=== PATIENT | female | born 1930 | race Caucasian/White ===

== ENCOUNTER 2018-10-04 22:00 | Emergency (ER) | payer MEDICARE, OTHER ==
[2018-10-04] MEDS ORDERED: 50% Dextrose in Water 50 ML Syringe ONE (22:06)
[2018-10-04] MEDS ORDERED: 50% Dextrose in Water 50 ML Syringe IVPUSH ONE (22:20)
--- NOTE | 2018-10-04 22:30 | EDM.PDOC ---
ED HPI GENERAL MEDICAL PROBLEM - General Chief Complaint: Diabetic Complaint Stated Complaint: [facility] Time Seen by Provider: 10/04/18 22:11 Source of Information: Reports: Patient, RN Notes Reviewed History Limitations: Reports: No Limitations - History of Present Illness INITIAL COMMENTS - FREE TEXT/NARRATIVE: The patient is brought to the ED by EMS, after she was found to be lethargic at home. Her family checked her blood glucose, finding it to be 28. They gave her Dr. Snyder, and called EMS. When EMS arrived, they found her blood glucose to be 52. They gave her a glucose tablet, after which her blood glucose was 56. A recheck was 52. They gave 2 more glucose tablets, after which her blood glucose was 54. Here in the ED, her initial blood glucose was 44. She was given 1 amp of D50. She is now alert, and states that she feels fine. She states that she takes NovoLog 70/30, 16 units QAM and 10 units at supper, which is typically between 5 and 6 PM. She states that she has been doing this for 15 years, and has never had a hypoglycemic reaction. She checks her blood glucose perhaps twice a week, most recently in the middle of last week. Her usual blood glucose range is in the 80s and 135. The patient states that she took her usual morning and evening NovoLog. She states that she had a normal breakfast and lunch, although she admits that she had less tender than usual. She states that it is impossible that she accidentally took excess insulin. The patient denies any recent fever, chills, chest pain, palpitations, cough, dyspnea, nausea, vomiting, constipation, diarrhea, abdominal pain, recent weight gain or weight loss, bloody bowel movements, black bowel movements, joint aches, headaches, rashes, or urinary symptoms. The patient's PCP is Dr. Blue Ann. 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: Other (See Below) (Ovarian cysts) Musculoskeletal History: Reports: Osteoarthritis Endocrine/Metabolic History: Reports: Diabetes, Type II, Hypothyroidism - Past Surgical History HEENT Surgical History: Reports: Oral Surgery Female Surgical History: Reports: Oophorectomy (right) Musculoskeletal Surgical History: Reports: Hip Replacement (bilateral) Social & Family History - Tobacco Use Smoking Status *Q: Never Smoker - Caffeine Use Caffeine Use: Reports: None - Alcohol Use Alcohol Use History: No - Recreational Drug Use Recreational Drug Use: No - Living Situation & Occupation Living situation: Reports: , Alone Occupation: Retired ED ROS GENERAL - Review of Systems Review Of Systems: ROS reveals no pertinent complaints other than HPI. ED EXAM GENERAL NO PERIP PULSE - Physical Exam Exam: See Below Exam Limited By: No Limitations General Appearance: Alert, WD/WN, No Apparent Distress Eye Exam: Bilateral Eye: EOMI, Normal Inspection Ears: Normal External Exam, Hearing Grossly Normal Nose: Normal Inspection Throat/Mouth: Normal Inspection, Normal Lips, Normal Voice, No Airway Compromise Head: Atraumatic, Normocephalic Neck: Normal Inspection, Full Range of Motion Respiratory/Chest: No Respiratory Distress, Lungs Clear, Normal Breath Sounds, No Accessory Muscle Use Cardiovascular: Normal Peripheral Pulses, Regular Rate, Rhythm, No Gallop, No JVD, No Murmur, No Rub GI/Abdominal: Normal Bowel Sounds, Soft, Non-Tender, No Organomegaly, No Distention, No Abnormal Bruit, No Mass, Other (Obese) (Female) Exam: Deferred Rectal (Female) Exam: Deferred Back Exam: Normal Inspection, Full Range of Motion, NT Extremities: Normal Inspection, Normal Range of Motion, No Pedal Edema, Normal Capillary Refill Neurological: Alert, Oriented, Normal Cognition, No Motor/Sensory Deficits Psychiatric: Normal Affect Skin Exam: Warm, Dry, Intact, Normal Color, No Rash Course - Vital Signs Last Recorded V/S: Last Vital Signs Temp 35.6 C 10/04/18 22:10 Pulse 74 10/04/18 22:10 Resp 18 10/04/18 22:10 BP 179/72 H 10/04/18 22:10 Pulse Ox 99 10/04/18 22:10 Orthostatic Blood Pressure [ 153/67 Standing] Orthostatic Blood Pressure [ 148/54 Supine] - Orders/Labs/Meds Labs: Laboratory Tests 10/04/18 10/04/18 10/04/18 Range/Units 22:04 22:17 22:42 WBC 7.51 (3.98-10.04) K/mm3 RBC 3.72 L (3.98-5.22) M/mm3 Hgb 11.8 (11.2-15.7) gm/L Hct 36.4 (34.1-44.9) % MCV 97.8 H (79.4-94.8) fl MCH 31.7 (25.6-32.2) pg MCHC 32.4 (32.2-35.5) g/dl RDW Std Deviation 46.1 (36.4-46.3) fL Plt Count 153 L (182-369) K/mm3 MPV 11.7 (9.4-12.3) fl Neutrophils % (Manual) 72 H (40-60) % Band Neutrophils % 0 (0-10) % Lymphocytes % (Manual) 15 L (20-40) % Atypical Lymphs % 0 % Monocytes % (Manual) 10 (2-10) % Eosinophils % (Manual) 3 (0.7-5.8) % Basophils % (Manual) 0 L (0.1-1.2) Platelet Estimate Adequate RBC Morph Comment Normal Sodium (136-145) mEq/L Potassium (3.5-5.1) mEq/L Chloride (98-107) mEq/L Carbon Dioxide (21-32) mEq/L Anion Gap (5-15) BUN (7-18) mg/dL Creatinine (0.55-1.02) mg/dL Est Cr Clr Drug Dosing Estimated GFR (MDRD) (>60) mL/min BUN/Creatinine Ratio (14-18) Glucose (83-115) mg/dL POC Glucose 44 L 183 H (83-110) mg/dL Calcium (8.5-10.1) mg/dL Magnesium (1.8-2.4) mg/dl Total Bilirubin (0.2-1.0) mg/dL AST (15-37) U/L ALT (14-59) U/L Alkaline Phosphatase (46-116) U/L Total Protein (6.4-8.2) g/dl Albumin (3.4-5.0) g/dl Globulin gm/dL Albumin/Globulin Ratio (1-2) 10/04/18 10/04/18 10/04/18 Range/Units 22:42 22:54 23:26 WBC (3.98-10.04) K/mm3 RBC (3.98-5.22) M/mm3 Hgb (11.2-15.7) gm/L Hct (34.1-44.9) % MCV (79.4-94.8) fl MCH (25.6-32.2) pg MCHC (32.2-35.5) g/dl RDW Std Deviation (36.4-46.3) fL Plt Count (182-369) K/mm3 MPV (9.4-12.3) fl Neutrophils % (Manual) (40-60) % Band Neutrophils % (0-10) % Lymphocytes % (Manual) (20-40) % Atypical Lymphs % % Monocytes % (Manual) (2-10) % Eosinophils % (Manual) (0.7-5.8) % Basophils % (Manual) (0.1-1.2) Platelet Estimate RBC Morph Comment Sodium 137 (136-145) mEq/L Potassium 4.0 (3.5-5.1) mEq/L Chloride 102 (98-107) mEq/L Carbon Dioxide 27 (21-32) mEq/L Anion Gap 12.0 (5-15) BUN 18 (7-18) mg/dL Creatinine 0.8 (0.55-1.02) mg/dL Est Cr Clr Drug Dosing TNP Estimated GFR (MDRD) > 60 (>60) mL/min BUN/Creatinine Ratio 22.5 H (14-18) Glucose 163 H (83-115) mg/dL POC Glucose 137 H 118 H (83-110) mg/dL Calcium 9.5 (8.5-10.1) mg/dL Magnesium 1.9 (1.8-2.4) mg/dl Total Bilirubin 0.3 (0.2-1.0) mg/dL AST 20 (15-37) U/L ALT 18 (14-59) U/L Alkaline Phosphatase 73 (46-116) U/L Total Protein 6.7 (6.4-8.2) g/dl Albumin 3.4 (3.4-5.0) g/dl Globulin 3.3 gm/dL Albumin/Globulin Ratio 1.0 (1-2) 10/05/18 10/05/18 Range/Units 00:09 00:42 WBC (3.98-10.04) K/mm3 RBC (3.98-5.22) M/mm3 Hgb (11.2-15.7) gm/L Hct (34.1-44.9) % MCV (79.4-94.8) fl MCH (25.6-32.2) pg MCHC (32.2-35.5) g/dl RDW Std Deviation (36.4-46.3) fL Plt Count (182-369) K/mm3 MPV (9.4-12.3) fl Neutrophils % (Manual) (40-60) % Band Neutrophils % (0-10) % Lymphocytes % (Manual) (20-40) % Atypical Lymphs % % Monocytes % (Manual) (2-10) % Eosinophils % (Manual) (0.7-5.8) % Basophils % (Manual) (0.1-1.2) Platelet Estimate RBC Morph Comment Sodium (136-145) mEq/L Potassium (3.5-5.1) mEq/L Chloride (98-107) mEq/L Carbon Dioxide (21-32) mEq/L Anion Gap (5-15) BUN (7-18) mg/dL Creatinine (0.55-1.02) mg/dL Est Cr Clr Drug Dosing Estimated GFR (MDRD) (>60) mL/min BUN/Creatinine Ratio (14-18) Glucose (83-115) mg/dL POC Glucose 121 H 148 H (83-110) mg/dL Calcium (8.5-10.1) mg/dL Magnesium (1.8-2.4) mg/dl Total Bilirubin (0.2-1.0) mg/dL AST (15-37) U/L ALT (14-59) U/L Alkaline Phosphatase (46-116) U/L Total Protein (6.4-8.2) g/dl Albumin (3.4-5.0) g/dl Globulin gm/dL Albumin/Globulin Ratio (1-2) Meds: Medications Discontinued Medications Generic Name Dose Route Start Last Admin Trade Name Freq PRN Reason Stop Dose Admin Dextrose/Water Confirm 10/04/18 22:06 10/04/18 22:20 Dextrose 50% In Water Administered 10/04/18 22:07 Not Given Dose 50 ml .ROUTE .STK-MED ONE Dextrose/Water 50 ml 10/04/18 22:20 10/04/18 22:08 Dextrose 50% In Water IVPUSH 10/04/18 22:21 50 ml ASDIRECTED ONE Administration - Re-Assessments/Exams Free Text/Narrative Re-Assessment/Exam: 10/04/18 22:29 The patient's hypoglycemia is likely due to her taking her usual amount of insulin, but eating an inadequate amount of dinner. The other possibility is that she has developed renal insufficiency. I have therefore ordered blood work and orthostatics. We will continue to Accu-Chek every 30 minutes (her most recent Accu-Chek was 183, following one amp of D50). 10/04/18 23:29 The patient's CBC is remarkable for platelets slightly depressed at 153,000, with the remainder of the CBC being unremarkable. Her CMP is unremarkable. Her magnesium level is within normal limits. Orthostatics are still pending. An earlier Accu-Chek was 137. Her most recent Accu-Chek is 118. We will give her something to eat. 10/05/18 00:28 The patient is not orthostatic. The patient's most recent blood glucose was 121 about 10-15 minutes ago. If her next Accu-Chek is stable, the patient may safely be discharged home. 10/05/18 01:07 The patient's most recent blood glucose is 148. This was relayed to the patient into of her daughters, who are now at the bedside. I will discharge her home. Departure - Departure Time of Disposition: 01:10 Disposition: Home, Self-Care 01 Condition: Good Clinical Impression: Hypoglycemic reaction to insulin - Discharge Information *PRESCRIPTION DRUG MONITORING PROGRAM REVIEWED*: Not Applicable *COPY OF PRESCRIPTION DRUG MONITORING REPORT IN PATIENT JOSY: Not Applicable Instructions: Hypoglycemia Referrals: Blue Ann MD [Primary Care Provider] - Forms: ED Department Discharge Additional Instructions: You were seen in the emergency room after your blood glucose was found to be very low - 28 at home, and 52 by the paramedics. Workup in the ER included blood work and positional blood pressure checks, all of which returned unremarkable. Your kidney function is normal, and you are not dehydrated. Your blood glucoses normalized after you were given IV dextrose and food. Based on your history, physical exam, and ER tests, the cause of your low blood sugar is most likely due to not eating enough after you took your normal amount of insulin. Going forward, it is important that you eat adequately if you take insulin. If you are not feeling hungry, take less, or even no insulin. It is preferable to have your blood sugar be high than low. Follow-up with your PCP, Dr. Blue Ann, later this week. If any other problems, please do not hesitate to return to the ER.
== END 2018-10-05 01:24 | disposition home or self-care (01) ==
LOC: JD.ED 22:00
DX: E11.649 Type 2 diabetes mellitus with hypoglycemia without coma (principal); T38.3X5A Adverse effect of insulin and oral hypoglycemic [antidiabetic] drugs, initial encounter; E66.9 Obesity, unspecified; Z98.890 Other specified postprocedural states; Z96.643 Presence of artificial hip joint, bilateral
CPT/HCPCS: 36415; 80053; 82962; 83735; 85007; 85027; 96374; 99285; J7060

== ENCOUNTER 2020-08-20 02:43 | Emergency (ER) | payer MEDICARE, OTHER ==
--- NOTE | 2020-08-20 03:46 | EDM.PDOC ---
ED HPI GENERAL MEDICAL PROBLEM - General Chief Complaint: Abdominal Pain Stated Complaint: ABDOMINAL PAIN Time Seen by Provider: 08/20/20 03:36 - History of Present Illness INITIAL COMMENTS - FREE TEXT/NARRATIVE: 89-year-old female presents the emergency room with abdominal pain. This pain started around 930 or 10:00 this evening. It started out as being periumbilical and his radiated up into the mid epigastric area. The patient still has her gallbladder and appendix and no history of significant abdominal surgeries. She is not nauseated at this time but has felt nauseated earlier this evening she has had no vomiting. No diarrhea no constipation. She is not aware of any fevers or chills. She has no pain radiating up into her chest. She does not wake up with any reflux. She has not had any black or tarry stools . Abdominal Pain Score (Numeric/FACES): 8 - Related Data Allergies Allergy/AdvReac Type Severity Reaction Status Date / Time No Known Allergies Allergy Verified 08/20/20 03:22 Home Meds: Home Meds Apixaban [Eliquis] 5 mg PO DAILY 08/20/20 [History] Calcium Carbonate [Calcium] 600 mg PO QPM 08/20/20 [History] Doxazosin Mesylate [Cardura] 2 mg PO DAILY 08/20/20 [History] Furosemide [Lasix] 40 mg PO BID 08/20/20 [History] Insuln Asp Prot/Insulin Aspart [NovoLOG Mix 70-30] 0 units SUBCUT BID 08/20/20 [History] Levothyroxine 25 mcg PO QAM 08/20/20 [History] Magnesium Oxide 400 mg PO DAILY 08/20/20 [History] Metoprolol Tartrate [Lopressor] 100 mg PO BID 08/20/20 [History] Multivitamin 1 tab PO DAILY 08/20/20 [History] Pantoprazole Sodium [Protonix] 40 mg PO QAM #30 tablet. 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: , Other (See Below) Musculoskeletal History: Reports: Osteoarthritis Endocrine/Metabolic History: Reports: Diabetes, Type II, Hypothyroidism - Past Surgical History HEENT Surgical History: Reports: Cataract Surgery, Oral Surgery, Other (See Below) Other HEENT Surgeries/Procedures: glasses Female Surgical History: Reports: Oophorectomy Other Female Surgeries/Procedures: right ovary removed Musculoskeletal Surgical History: Reports: Hip Replacement Social & Family History - Tobacco Use Tobacco Use Status *Q: Never Tobacco User Second Hand Smoke Exposure: No - Caffeine Use Caffeine Use: Reports: Coffee - Recreational Drug Use Recreational Drug Use: No - Living Situation & Occupation Living situation: Reports: , Alone Occupation: Retired ED ROS GENERAL - Review of Systems Review Of Systems: See Below Constitutional: Reports: No Symptoms HEENT: Reports: No Symptoms Respiratory: Reports: No Symptoms Cardiovascular: Reports: No Symptoms GI/Abdominal: Reports: Abdominal Pain, Nausea. Denies: Black Stool, Bloody St ool, Constipation, Diarrhea, Vomiting : Reports: No Symptoms Musculoskeletal: Reports: No Symptoms Skin: Reports: No Symptoms Neurological: Reports: No Symptoms Hematologic/Lymphatic: Reports: No Symptoms ED EXAM, GENERAL - Physical Exam Exam: See Below Exam Limited By: No Limitations General Appearance: Alert, No Apparent Distress Head: Atraumatic, Normocephalic Neck: Normal Inspection, Supple, Non-Tender, Full Range of Motion. No: Lymphadenopathy (L), Lymphadenopathy (R) Respiratory/Chest: No Respiratory Distress, Lungs Clear, Normal Breath Sounds Cardiovascular: Regular Rate, Rhythm, No Murmur, Other (Marked 2-3+ pitting edema in the lower extremities apparently this is normal for her) GI/Abdominal: Normal Bowel Sounds, Soft, Other (Patient has some vague midepigastric discomfort with palpation at this time no periumbilical discomfort no other palpable discomfort noted. No rigidity rebound or guarding.) Back Exam: Normal Inspection. No: CVA Tenderness (L), CVA Tenderness (R) Extremities: Normal Inspection, Pedal Edema (2-3+ pitting edema in the lower extremities this is a normal finding for her) Neurological: Alert, Oriented, Normal Cognition #1 Interpretation EKG Date: 08/20/20 Rhythm: A-Fib [place]: Normal P-Wave: Absent QRS: Normal ST-T: Other (Nonspecific nondiagnostic changes) QT: Normal Comparison: NA - No Prior EKG EKG Interpretation Comments: Abnormal EKG Course - Vital Signs Last Recorded V/S: Last Vital Signs Temp 35.6 C L 08/20/20 03:20 Pulse 86 08/20/20 03:20 Resp 18 08/20/20 03:20 BP 132/67 08/20/20 03:20 Pulse Ox 92 L 08/20/20 03:20 - Orders/Labs/Meds Orders: Active Orders 24 hr Category Date Time Status EKG Documentation Completion [RC] STAT Care 08/20/20 03:49 Active Sodium Chloride 0.9% [Normal Saline] 100 ml Med 08/20/20 06:15 Active IV ASDIRECTED Medication Orders Sodium Chloride (Normal Saline) 100 mls @ 60 mls/hr IV ASDIRECTED EDMUND Labs: Laboratory Tests 08/20/20 08/20/20 08/20/20 Range/Units 03:40 04:10 04:10 WBC 5.83 (3.98-10.04) K/mm3 RBC 3.84 L (3.98-5.22) M/mm3 Hgb 12.1 (11.2-15.7) gm/dl Hct 37.0 (34.1-44.9) % MCV 96.4 H (79.4-94.8) fl MCH 31.5 (25.6-32.2) pg MCHC 32.7 (32.2-35.5) g/dl RDW Std Deviation 51.0 H (36.4-46.3) fL Plt Count 140 L (182-369) K/mm3 MPV 12.3 (9.4-12.3) fl Neut % (Auto) 68.2 (34.0-71.1) % Lymph % (Auto) 19.2 L (19.3-51.7) % [place] % (Auto) 11.7 (4.7-12.5) % Eos % (Auto) 0.5 L (0.7-5.8) Baso % (Auto) 0.2 (0.1-1.2) % Neut # (Auto) 3.98 (1.56-6.13) K/mm3 Lymph # (Auto) 1.12 L (1.18-3.74) K/mm3 [place] # (Auto) 0.68 H (0.24-0.36) K/mm3 Eos # (Auto) 0.03 L (0.04-0.36) K/mm3 Baso # (Auto) 0.01 (0.01-0.08) K/mm3 PT 11.6 (9.7-12.0) SECONDS INR 1.09 APTT 25.4 (21.7-31.4) SECONDS Sodium 140 (136-145) mEq/L Potassium 3.6 (3.5-5.1) mEq/L Chloride 101 (98-107) mEq/L Carbon Dioxide 32 (21-32) mEq/L Anion Gap 10.6 (5-15) BUN 21 H (7-18) mg/dL Creatinine 1.0 (0.55-1.02) mg/dL Est Cr Clr Drug Dosing 38.47 mL/min Estimated GFR (MDRD) 52 (>60) mL/min BUN/Creatinine Ratio 21.0 H (14-18) Glucose 108 H (70-99) mg/dL Calcium 10.0 (8.5-10.1) mg/dL Total Bilirubin 0.7 (0.2-1.0) mg/dL AST 121 H (15-37) U/L ALT 81 H (14-59) U/L Alkaline Phosphatase 113 (46-116) U/L Troponin I < 0.017 (0.00-0.056) ng/mL Total Protein 6.7 (6.4-8.2) g/dl Albumin 3.6 (3.4-5.0) g/dl Globulin 3.1 gm/dL Albumin/Globulin Ratio 1.2 (1-2) Lipase 115 (73-393) U/L Meds: Medications Generic Name Dose Route Start Last Admin Trade Name Freq PRN Reason Stop Dose Admin Sodium Chloride 100 mls @ 60 mls/hr 08/20/20 06:15 Normal Saline IV ASDIRECTED EDMUND Discontinued Medications Generic Name Dose Route Start Last Admin Trade Name Freq PRN Reason Stop Dose Admin Al Hydroxide/Mg Hydroxide 30 0 ml 08/20/20 03:51 08/20/20 04:13 ml/ Lidocaine HCl 15 ml PO 08/20/20 03:52 45 ml ONETIME ONE Administration Diatrizoate Meglum/Diatrizoate Sod 90 ml 08/20/20 06:08 08/20/20 06:37 Diatrizoate Meglumine/Diatrizoate Sodium 37% 120 Ml Bottle PO 08/20/20 06:09 90 ml ONETIME ONE Administration Hydromorphone HCl 0.25 mg 08/20/20 06:18 08/20/20 06:24 Hydromorphone 0.5 Mg/0.5 Ml Syringe IVPUSH 08/20/20 06:19 0.25 mg ONETIME ONE Administration Sodium Chloride 250 mls @ 999 mls/hr 08/20/20 05:24 08/20/20 06:13 Normal Saline IV 08/20/20 05:39 999 mls/hr .BOLUS ONE Administration Iopamidol 100 ml 08/20/20 06:08 08/20/20 06:37 Iopamidol 612 Mg/Ml 100 Ml Bottle IVPUSH 08/20/20 06:09 100 ml ONETIME ONE Administration Pantoprazole Sodium 40 mg 08/20/20 04:47 08/20/20 05:02 Pantoprazole 40 Mg Vial IVPUSH 08/20/20 04:48 40 mg ONETIME ONE Administration Sodium Chloride 10 ml 08/20/20 06:08 08/20/20 06:37 Sodium Chloride 0.9% 10 Ml Syringe FLUSH 08/20/20 06:09 10 ml ONETIME ONE Administration Sucralfate 1 gm 08/20/20 04:47 08/20/20 05:02 Sucralfate Suspension 1 Gm/10 Ml Cup PO 08/20/20 04:48 1 gm ONETIME ONE Administration - Re-Assessments/Exams Free Text/Narrative Re-Assessment/Exam: 08/20/20 06:41 She was given a GI cocktail and this seemed to help this was followed up with Carafate and this shortly after this her pain returned. We did have the discussion about checking a CAT scan and the patient and her daughter would like this option as well so a CAT scan was ordered and should be occurring pretty soon. It should be noted the patient developed worsening pain and I gave her a little bit of Dilaudid a short time ago. Laboratory evaluation is unrevealing. 08/20/20 07:47 CT is probably nondiagnostic there was a small amount of fluid noted around the gallbladder. Otherwise no significant abnormality with abdominal pelvic CT with IV and oral contrast. I did discuss this with the patient and her daughter at this point did like to be treated for dyspepsia they will follow up with her regular physician on Thursday or consider gallbladder ultrasound at that time if her symptoms are not significantly better.. She will be placed on PPI therapy as well as Carafate for a week to give the PPI time to take good effect Departure - Departure Time of Disposition: 07:49 Disposition: Home, Self-Care 01 Clinical Impression: Upper abdominal pain - Discharge Information Referrals: Blue Ann MD [Primary Care Provider] - Forms: ED Department Discharge Additional Instructions: Return to the emergency room with any questions problems or worsening symptoms. You have been started on 2 medications the first medication is Carafate, or sucralfate. Take 1 just before your morning midday and evening meals and again at bedtime. You will take this for a week. Take your other medications at least 60 minutes prior or 2 hours after taking this medication The second medication is Protonix take this 60 minutes before your morning meal. Follow-up with your regular physician on Thursday or of this week for recheck Sepsis Event Note (ED) - Evaluation Sepsis Screening Result: No Definite Risk - Focused Exam Vital Signs: Vital Signs Temp Pulse Resp BP Pulse Ox 08/20/20 03:20 35.6 C L 86 18 132/67 92 L - My Orders Last 24 Hours: My Active Orders 08/20/20 03:49 EKG Documentation Completion [RC] STAT 08/20/20 06:15 Sodium Chloride 0.9% [Normal Saline] 100 ml IV ASDIRECTED - Assessment/Plan Last 24 Hours: My Active Orders 08/20/20 03:49 EKG Documentation Completion [RC] STAT 08/20/20 06:15 Sodium Chloride 0.9% [Normal Saline] 100 ml IV ASDIRECTED
[2020-08-20] MEDS ORDERED: Alum Hydrox/Mag Hydrox/Simeth 30 ML, Lidocaine 2% 15 ML PO ONE ×2 (03:51)
[2020-08-20] MEDS ORDERED: Sucralfate Suspension 1 GM/10 ML Cup PO ONE (04:47)
[2020-08-20] MEDS ORDERED: Pantoprazole 40 MG Vial IVPUSH ONE (04:47)
[2020-08-20] MEDS ORDERED: Sodium Chloride 0.9% 250 ML IV ONE (05:24)
[2020-08-20] MEDS ORDERED: Iopamidol 612 MG/ML 100 ML Bottle IVPUSH ONE (06:08)
[2020-08-20] MEDS ORDERED: Diatrizoate Meglumine/Diatrizoate Sodium 37% 120 ML Bottle PO ONE (06:08)
[2020-08-20] MEDS: Sodium Chloride 0.9% 10 ML Syringe FLUSH ONE ×2 (06:14→06:37)
[2020-08-20] MEDS ORDERED: Sodium Chloride 0.9% 100 ML IV SCH (06:15)
[2020-08-20] MEDS ORDERED: HYDROmorphone 0.5 MG/0.5 ML Syringe IVPUSH ONE (06:18)
[2020-08-20] MEDS ORDERED: Morphine 2 MG/ML SYRINGE IVPUSH PRN (07:05)
--- NOTE | 2020-08-20 07:06 | CT ---
CT abdomen and pelvis Technique: Multiple axial sections were obtained from above the dome of the diaphragm inferiorly through the pubic symphysis. Intravenous and oral contrast was utilized. Additional delayed images were also obtained through the bladder. Reconstructed coronal and sagittal images were obtained. Comparison: Prior abdominal x-ray performed earlier on the same day. Findings: Visualized lung bases show slight density within the anterior right lung base either due to scarring or atelectasis. Heart is mildly enlarged. Liver contains no focal parenchymal abnormality. Gallbladder is somewhat distended. No calcified gallstones are seen. Questionable fluid around the gallbladder is seen. Spleen size is normal. Several small areas of accessory splenic tissue are noted inferior to the spleen. Minimal hiatal hernia is seen. Small fatty nodule is noted within the left adrenal gland which is benign. Adrenal glands are otherwise unremarkable. Pancreas is atrophied without focal abnormality. Kidneys show symmetric contrast enhancement. Inferior left kidney shows a cyst measuring 5.5 cm. Smaller cyst is noted within the mid right kidney measuring approximately 1.2 cm in size. Kidneys otherwise appear within normal limits. Abdominal aorta shows atherosclerotic change with no aneurysm. No retroperitoneal adenopathy or mesenteric abnormalities are seen. Bilateral hip prostheses are noted causing artifact within the pelvis. No discrete pelvic mass or adenopathy is appreciated. Delayed images show contrast within the distal ureters and within the bladder. Appendix is seen which is normal. Bowel gas pattern appears within normal limits. Bone window settings were reviewed. Degenerative disc change is noted at L3-4 through L5-S1 with disc space narrowing and vacuum phenomena. Degenerative apophyseal change is also noted. Lesser degenerative change is seen within other portions of the spine. Impression: 1. Slight fluid suggested around the gallbladder. Please correlate if patient has any gallbladder symptoms to indicate gallbladder ultrasound. 2. Other findings as noted above which are believed to be chronic and most likely incidental. Diagnostic code #3
--- NOTE | 2020-08-20 07:08 | CR ---
Abdomen: Supine and upright views of the abdomen were obtained. Comparison: No prior abdominal imaging with available. Minimal atelectasis is seen within the right lung base. Bilateral hip prostheses are noted. Bowel gas pattern appears within normal limits. No free air is seen. Phleboliths are seen within the pelvis. Heterotopic bone is noted off the left hip. Slight scoliosis is noted within the spine. Impression: 1. Findings as noted above. 2. Nothing acute is seen on a 2 view abdomen x-ray. Diagnostic code #2
== END 2020-08-20 08:15 | disposition home or self-care (01) ==
LOC: JD.ED 02:43
DX: R10.13 Epigastric pain (principal); E78.00 Pure hypercholesterolemia, unspecified; I10 Essential (primary) hypertension; E11.9 Type 2 diabetes mellitus without complications; E03.9 Hypothyroidism, unspecified; Z79.4 Long term (current) use of insulin; Z79.01 Long term (current) use of anticoagulants; Z79.899 Other long term (current) drug therapy
CPT/HCPCS: 36415; 74019; 74177; 80053; 83690; 84484; 85025; 85610; 85730; 93005; 96374; 96375; 99284; A9270; C9113; J1170; J7030; Q9963; Q9967; 93010

== ENCOUNTER 2020-08-27 11:53 | Emergency (ER) | payer MEDICARE, OTHER ==
[2020-08-27] MEDS ORDERED: Sodium Chloride 0.9% 10 ML Syringe FLUSH PRN (12:45)
--- NOTE | 2020-08-27 13:04 | EDM.PDOC ---
ED HPI GENERAL MEDICAL PROBLEM - General Chief Complaint: Abdominal Pain Stated Complaint: ABDOMINAL PAIN Time Seen by Provider: 08/27/20 12:28 Source of Information: Reports: Patient, Family, RN Notes Reviewed, Other (u/s report and lab records sent from Dr. Ann) History Limitations: Reports: No Limitations - History of Present Illness INITIAL COMMENTS - FREE TEXT/NARRATIVE: Patient is an 89-year-old female presenting to the emergency department the request of her primary care provider. She was seen in this emergency department 1 week ago with complaints of abdominal pain. At that time, CT scan was completed and showed some fluid around the gallbladder. No ultrasound was completed at that time. She followed up in the clinic last Thursday with her primary care provider and had blood work completed. She had a right upper quadrant ultrasound completed today which showed findings consistent with acute cholecystitis. Patient states that her symptoms have improved significantly since 1 week ago. Up until Thursday of last week she was having quite a bit of discomfort but this has improved. She is now has some mild tenderness in the right upper quadrant. Appetite is still poor, but she has had no nausea or vomiting. She does report some loose stools. Daughter states that she did have a temperature of 101 on Thursday but has had no known fever since that time. She is diabetic and has been taking her Metformin and insulin since Thursday of last week. Prior to Thursday, she had stopped taking her Metformin due to the CT scan that was completed on the . She also had stopped her insulin because she wasn't feeling well, but has since resumed this. States that her blood sugars have been well controlled as of recent. - Related Data Allergies Allergy/AdvReac Type Severity Reaction Status Date / Time No Known Allergies Allergy Verified 08/27/20 12:38 Home Meds: Home Meds Apixaban [Eliquis] 5 mg PO DAILY 08/20/20 [History] Calcium Carbonate [Calcium] 600 mg PO QPM 08/20/20 [History] Doxazosin Mesylate [Cardura] 2 mg PO DAILY 08/20/20 [History] Furosemide [Lasix] 40 mg PO BID 08/20/20 [History] Insuln Asp Prot/Insulin Aspart [NovoLOG Mix 70-30] 0 units SUBCUT BID 08/20/20 [History] Levothyroxine 25 mcg PO QAM 08/20/20 [History] Magnesium Oxide 400 mg PO DAILY 08/20/20 [History] Metoprolol Tartrate [Lopressor] 100 mg PO BID 08/20/20 [History] Multivitamin 1 tab PO DAILY 08/20/20 [History] Pantoprazole Sodium [Protonix] 40 mg PO QAM #30 tablet. 08/20/20 [Rx] Sucralfate [Carafate] 1 gm PO QIDACANDBED #28 cup 08/20/20 [Rx] atorvaSTATin [Lipitor] 10 mg PO QPM 08/20/20 [History] metFORMIN HCl [Metformin HCl] 1,000 mg PO DAILY 08/20/20 [History] Past Medical History Cardiovascular History: Reports: High Cholesterol, Hypertension Genitourinary History: Reports: Urinary Incontinence [employer] History: Reports: , Other (See Below) Musculoskeletal History: Reports: Osteoarthritis Endocrine/Metabolic History: Reports: Diabetes, Type II, Hypothyroidism - Past Surgical History HEENT Surgical History: Reports: Cataract Surgery, Oral Surgery, Other (See Below) Other HEENT Surgeries/Procedures: glasses Female Surgical History: Reports: Oophorectomy Other Female Surgeries/Procedures: right ovary removed Musculoskeletal Surgical History: Reports: Hip Replacement Social & Family History - Tobacco Use Tobacco Use Status *Q: Never Tobacco User - Caffeine Use Caffeine Use: Reports: Coffee - Recreational Drug Use Recreational Drug Use: No - Living Situation & Occupation Living situation: Reports: , Alone Occupation: Retired ED ROS GENERAL - Review of Systems Review Of Systems: See Below Constitutional: Reports: Decreased Appetite. Denies: Fever, Chills, Weakness HEENT: Reports: No Symptoms Respiratory: Reports: No Symptoms Cardiovascular: Reports: No Symptoms Endocrine: Reports: No Symptoms GI/Abdominal: Reports: Abdominal Pain, Diarrhea. Denies: Nausea, Vomiting : Reports: No Symptoms. Denies: Dysuria Musculoskeletal: Reports: No Symptoms Skin: Reports: No Symptoms Neurological: Reports: No Symptoms Psychiatric: Reports: No Symptoms Hematologic/Lymphatic: Reports: No Symptoms ED EXAM, GI/ABD - Physical Exam Exam: See Below General Appearance: Alert, WD/WN, No Apparent Distress Respiratory/Chest: No Respiratory Distress, Lungs Clear, Normal Breath Sounds, No Accessory Muscle Use, Chest Non-Tender Cardiovascular: Normal Peripheral Pulses, Regular Rate, Rhythm, No Edema, No Gallop, No JVD, No Murmur, No Rub GI/Abdominal Exam: Normal Bowel Sounds, Soft, No Organomegaly, No Distention, No Abnormal Bruit, No Mass, Pelvis Stable, Tender (mild RUQ) Neurological: Alert, Oriented, CN II-XII Intact, Normal Cognition, Normal Gait, Normal Reflexes, No Motor/Sensory Deficits Psychiatric: Normal Affect, Normal Mood Skin Exam: Warm, Dry, Intact, Normal Color, No Rash Course - Vital Signs Last Recorded V/S: Last Vital Signs Temp 97.8 F 08/27/20 12:34 Pulse 103 H 08/27/20 12:34 Resp 18 08/27/20 12:34 BP 118/60 08/27/20 12:34 Pulse Ox 97 08/27/20 12:34 - Orders/Labs/Meds Labs: Laboratory Tests 08/27/20 08/27/20 08/27/20 Range/Units 13:10 13:10 13:10 WBC 9.48 (3.98-10.04) K/mm3 RBC 3.38 L (3.98-5.22) M/mm3 Hgb 10.6 L D (11.2-15.7) gm/dl Hct 32.4 L (34.1-44.9) % MCV 95.9 H (79.4-94.8) fl MCH 31.4 (25.6-32.2) pg MCHC 32.7 (32.2-35.5) g/dl RDW Std Deviation 49.2 H (36.4-46.3) fL Plt Count 145 L (182-369) K/mm3 MPV 12.0 (9.4-12.3) fl Neut % (Auto) 75.6 H (34.0-71.1) % Lymph % (Auto) 8.9 L (19.3-51.7) % [place] % (Auto) 14.1 H (4.7-12.5) % Eos % (Auto) 0.2 L (0.7-5.8) Baso % (Auto) 0.1 (0.1-1.2) % Neut # (Auto) 7.17 H (1.56-6.13) K/mm3 Lymph # (Auto) 0.84 L (1.18-3.74) K/mm3 [place] # (Auto) 1.34 H (0.24-0.36) K/mm3 Eos # (Auto) 0.02 L (0.04-0.36) K/mm3 Baso # (Auto) 0.01 (0.01-0.08) K/mm3 Sodium 137 (136-145) mEq/L Potassium 3.1 L (3.5-5.1) mEq/L Chloride 96 L (98-107) mEq/L Carbon Dioxide 33 H (21-32) mEq/L Anion Gap 11.1 (5-15) BUN 20 H (7-18) mg/dL Creatinine 1.2 H (0.55-1.02) mg/dL Est Cr Clr Drug Dosing 27.44 mL/min Estimated GFR (MDRD) 42 (>60) mL/min BUN/Creatinine Ratio 16.7 (14-18) Glucose 215 H (70-99) mg/dL Lactic Acid 2.2 H* (0.4-2.0) mmol/L Calcium 9.3 (8.5-10.1) mg/dL Total Bilirubin 0.7 (0.2-1.0) mg/dL GGT 219 H (5-55) U/L AST 29 (15-37) U/L ALT 55 (14-59) U/L Alkaline Phosphatase 282 H (46-116) U/L C-Reactive Protein 17.3 H* (<1.0) mg/dL Total Protein 6.2 L (6.4-8.2) g/dl Albumin 2.3 L (3.4-5.0) g/dl Globulin 3.9 gm/dL Albumin/Globulin Ratio 0.6 L (1-2) Lipase 103 (73-393) U/L Urine Color (Yellow) Urine Appearance (Clear) Urine pH (5.0-8.0) Ur Specific [place] (1.005-1.030) Urine Protein (Negative) Urine Glucose (UA) (Negative) Urine Ketones (Negative) Urine Occult Blood (Negative) Urine Nitrite (Negative) Urine Bilirubin (Negative) Urine Urobilinogen (0.2-1.0) Ur Leukocyte Esterase (Negative) U Hyaline Cast (Auto) (0-5) /lpf Urine RBC (0-5) /hpf Urine WBC (0-5) /hpf Ur Squamous Epith Cells (0-5) /hpf Urine Bacteria (FEW) /hpf Urine Mucus (FEW) /hpf 08/27/20 08/27/20 Range/Units 14:36 16:11 WBC (3.98-10.04) K/mm3 RBC (3.98-5.22) M/mm3 Hgb (11.2-15.7) gm/dl Hct (34.1-44.9) % MCV (79.4-94.8) fl MCH (25.6-32.2) pg MCHC (32.2-35.5) g/dl RDW Std Deviation (36.4-46.3) fL Plt Count (182-369) K/mm3 MPV (9.4-12.3) fl Neut % (Auto) (34.0-71.1) % Lymph % (Auto) (19.3-51.7) % [place] % (Auto) (4.7-12.5) % Eos % (Auto) (0.7-5.8) Baso % (Auto) (0.1-1.2) % Neut # (Auto) (1.56-6.13) K/mm3 Lymph # (Auto) (1.18-3.74) K/mm3 [place] # (Auto) (0.24-0.36) K/mm3 Eos # (Auto) (0.04-0.36) K/mm3 Baso # (Auto) (0.01-0.08) K/mm3 Sodium (136-145) mEq/L Potassium (3.5-5.1) mEq/L Chloride (98-107) mEq/L Carbon Dioxide (21-32) mEq/L Anion Gap (5-15) BUN (7-18) mg/dL Creatinine (0.55-1.02) mg/dL Est Cr Clr Drug Dosing mL/min Estimated GFR (MDRD) (>60) mL/min BUN/Creatinine Ratio (14-18) Glucose (70-99) mg/dL Lactic Acid 1.7 (0.4-2.0) mmol/L Calcium (8.5-10.1) mg/dL Total Bilirubin (0.2-1.0) mg/dL GGT (5-55) U/L AST (15-37) U/L ALT (14-59) U/L Alkaline Phosphatase (46-116) U/L C-Reactive Protein (<1.0) mg/dL Total Protein (6.4-8.2) g/dl Albumin (3.4-5.0) g/dl Globulin gm/dL Albumin/Globulin Ratio (1-2) Lipase (73-393) U/L Urine Color Yellow (Yellow) Urine Appearance Clear (Clear) Urine pH 6.0 (5.0-8.0) Ur Specific [place] 1.015 (1.005-1.030) Urine Protein Negative (Negative) Urine Glucose (UA) Negative (Negative) Urine Ketones Negative (Negative) Urine Occult Blood Negative (Negative) Urine Nitrite Negative (Negative) Urine Bilirubin Negative (Negative) Urine Urobilinogen 0.2 (0.2-1.0) Ur Leukocyte Esterase Negative (Negative) U Hyaline Cast (Auto) 0-5 (0-5) /lpf Urine RBC 0-5 (0-5) /hpf Urine WBC 0-5 (0-5) /hpf Ur Squamous Epith Cells 0-5 (0-5) /hpf Urine Bacteria Few (FEW) /hpf Urine Mucus Few (FEW) /hpf Meds: Medications Discontinued Medications Generic Name Dose Route Start Last Admin Trade Name Freq PRN Reason Stop Dose Admin Sodium Chloride 10 ml 08/27/20 12:45 Sodium Chloride 0.9% 10 Ml Syringe FLUSH ASDIRECTED PRN Keep Vein Open - Re-Assessments/Exams Free Text/Narrative Re-Assessment/Exam: Patient is an 89-year-old female presenting to the emergency department at the request of her primary care provider after completing a right upper quadrant ultrasound today that showed findings consistent with acute cholecystitis. Patient verbalized her pain symptoms have improved significantly. For today's purposes, I will repeat blood work. Once this is available, I will speak with the surgeon on-call regarding the patient's case. 08/27/20 14:30 Hematology was significant for a hemoglobin low at 10.6, platelets low at 145, potassium 3.1, chloride 96, CO2 33, BUN 20, creatinine 1.2, glucose 215, lactic acid 2.2, GGT 219, alkaline phosphatase 282, CRP 17.3. WBCs, total bili, and lipase are normal. I have left message with Dr. Lisa, the general surgeon on- call. She is currently in surgery but will call me back once she is available. 08/27/[address] Lisa regarding patient case. She recommends transfer to [place] for likely percutaneous drain given patient's comorbidities including A. fib on Eliquis and diabetes. Results discussed with patient and her daughter. They prefer [facility] in [place]. Her daughter would prefer to take her by private vehicle. 08/27/20 15:45 Case was discussed with the general surgeon at [facility], Dr. Ozuna. He recommended the patient be transferred for admission under hospitalist service and consult to the surgeon. He did not recommend that any antibiotics be given prior to departure. Spoke with hospitalist, Dr. Hackett. He has accepted the patient for admission for acute cholecystitis. Patient will transfer by private vehicle with her daughter. Departure - Departure Time of Disposition: 15:55 Disposition: DC/Tfer to [facility] 02 Condition: Good Clinical Impression: Cholecystitis - Discharge Information *PRESCRIPTION DRUG MONITORING PROGRAM REVIEWED*: No *COPY OF PRESCRIPTION DRUG MONITORING REPORT IN PATIENT JOSY: No Instructions: Cholecystitis Referrals: Blue Ann MD [Primary Care Provider] - Forms: ED Department Discharge Additional Instructions: You were seen in the emergency department today for evaluation with regards to an ultrasound indicating that you have acute cholecystitis. Blood work was repeated in the emergency department. Arrangements have been made for you to be a direct admission to [facility] under the care of hospitalist Dr. Hackett. You may check in at the admitting desk. If you experience any medical difficulties in route, please call 911. Sepsis Event Note (ED) - Evaluation Sepsis Screening Result: No Definite Risk
== END 2020-08-27 16:32 ==
LOC: JD.ED 11:53
DX: K81.9 Cholecystitis, unspecified (principal); E78.00 Pure hypercholesterolemia, unspecified; I10 Essential (primary) hypertension; E11.9 Type 2 diabetes mellitus without complications; E03.9 Hypothyroidism, unspecified; Z79.01 Long term (current) use of anticoagulants; Z79.899 Other long term (current) drug therapy; Z79.4 Long term (current) use of insulin
CPT/HCPCS: 36415; 80053; 81001; 82977; 83605; 83690; 85025; 86140; 87040; 99284